=== PATIENT | male | born 1960 ===

== ENCOUNTER → 2023-07-25 | Outpatient (CLI) | payer OTHER ==
[~2023-07-25] MED LIST: CEPH500 PO; CLIN300 PO; HYDACE5 PO; METTREX2.5 PO; PRED10 PO; RXCODACET PO
== END ==
LOC: LAB 17:01 → LAB SHORT 17:01
DX: L08.9 Local infection of the skin and subcutaneous tissue, unspecified (principal)
CPT/HCPCS: 87070; 87205